=== PATIENT | male | born 1975 | race Caucasian/White ===

== ENCOUNTER 2022-12-15 16:44 | Emergency (ER) | payer OTHER ==
[~2022-12-15] VITALS: Ht 177.8 cm; Wt 90.7 kg
[2022-12-15 17:09] VITALS: BP_SYST 131
[2022-12-15 18:08] VITALS: BP_SYST 132
== END 2022-12-15 18:08 | disposition home or self-care (01) ==
LOC: SED 16:44
DX: S13.4XXA Sprain of ligaments of cervical spine, initial encounter (principal); S63.616A Unspecified sprain of right little finger, initial encounter; V49.49XA Driver injured in collision with other motor vehicles in traffic accident, initial encounter; Y93.89 Activity, other specified; Y92.89 Other specified places as the place of occurrence of the external cause; Y99.8 Other external cause status
CPT/HCPCS: 71045; 72040-TC; 73140-TC; 82962; 99284